=== PATIENT | male | born 1975 | race Caucasian/White ===

== ENCOUNTER 2016-09-05 17:23 | Emergency (ER) | payer OTHER ==
[~2016-09-05] VITALS: Ht 172.7 cm; Wt 97.0 kg
[2016-09-05 17:28] VITALS: Ht 172.7 cm; Wt 97.0 kg
[2016-09-05] MEDS ORDERED: IBUP800T25 PO (18:33)
--- NOTE | 2016-09-05 18:33 | ERD ---
ER Documentation Chief Complaint Date/Time DATE: 09/05/16 TIME: 18:31 Chief Complaint Complains of back pain x 1 week HPI This is a 40-year-old male who presents to the emergency room for evaluation of back pain. The patient denies any trauma states that he was lifting a heavy cover and noticed a sharp pain in his back. He states the pain occurred 2 days ago and denies any other symptoms. He states that the pain does radiate down his left leg and denies any urinary incontinence or urinary retention. ROS All systems reviewed and are negative except as per history of present illness. Allergies Allergies: Coded Allergies: No Known Allergy (Unverified , 09/05/16) PMhx/Soc Hx Cardiac Disorders: Yes (HTN) Hx Psychiatric Problems: Yes (MR) Hx Miscellaneous Medical Probl: Yes (DM) Physical Exam Vitals Vital Signs Date Time Temp Pulse Resp B/P Pulse Ox O2 Delivery O2 Flow Rate FiO2 09/05/16 17:28 97.0 89 20 137/93 99 Physical Exam Const: No acute distress Head: Atraumatic Eyes: Normal Conjunctiva ENT: Normal External Ears, Nose and Mouth. Neck: Full range of motion..~ No meningismus. Resp: Clear to auscultation bilaterally Cardio: Regular rate and rhythm, no murmurs Abd: Soft, non tender, non distended. Normal bowel sounds Skin: No petechiae or rashes Back: No midline or flank tenderness Ext: No cyanosis, or edema Neur: Awake and alert Psych: Normal Mood and Affect Procedures/MDM This 40-year-old male presents to the emergency room for evaluation of back pain. The patient has no trauma and has back pain did occur after heavy lifting. I do believe this patient is suffering from a lumbar strain. The patient was given Motrin in the emergency room. He has no signs of urinary retention or urinary incontinence, or fever indicative of infection or cauda equina. He is a relating in the emergency room without difficulty and will be discharged home at this time with a prescription for Motrin. Patient presents today with atraumatic back pain. Although infection, malignancy, GI, , and vascular causes have been considered in this patient, the patient's clinical presentation is most consistent with a musculoskeletal cause. There is neither evidence of any acute neurologic damage, nor of loss of function and thus, advanced imaging studies have been deferred. Patient will be treated conservatively with appropriate pain control precautionary discharge instructions provided. Departure Diagnosis: Primary Impression: Strain of lumbar paraspinal muscle Condition: Stable MENDOZA ADAN DO Sep 05, 2016 18:33
[2016-09-05] MEDS ORDERED: IBUPROFEN 800 MG TAB PO ONE (19:00)
== END 2016-09-05 18:47 | disposition home or self-care (01) ==
LOC: FTE 17:23
DX: S39.012A Strain of muscle, fascia and tendon of lower back, initial encounter (principal); I10 Essential (primary) hypertension; E11.9 Type 2 diabetes mellitus without complications; X50.0XXA Overexertion from strenuous movement or load, initial encounter; Y92.9 Unspecified place or not applicable
CPT/HCPCS: Z7502; Z7610; 99283